=== PATIENT | male | born 1965 | race Caucasian/White ===

== ENCOUNTER 2016-09-18 07:35 | Day surgery (SDC) | payer BC, OTHER ==
[~2016-09-18 07:35] MED LIST: Dextrose 5%-0.45% NaCl 1,000 ML IV SCH; Midazolam 1 MG/ML 2 ML SDV ONE; Sodium Chloride 0.9% 10 ML Syringe FLUSH PRN; fentaNYL 100 MCG/2 ML SDV ONE
[2016-09-18] MEDS ORDERED: fentaNYL 100 MCG/2 ML SDV IV ONE ×4 (08:21→16:23)
[2016-09-18] MEDS ORDERED: Midazolam 1 MG/ML 2 ML SDV IV ONE ×7 (08:21→16:23)
--- NOTE | 2016-09-18 09:44 | OR ---
DATE: 09/18/2016 PROCEDURE: Total colonoscopy. INSTRUMENT USED: CF-H180AL Olympus video colonoscope. Olympus distal detachment device. PREMEDICATIONS: Fentanyl 125 mcg intravenous, Versed 4 mg intravenous. Nasal 2 L O2 cannula. The procedure was done under pulse oximetry, BP recording, and security monitor. INDICATION: Screening colonoscopic examination is done for detection of any polypoid lesions and removal, endoscopic hemostasis therapy if needed. DESCRIPTION OF PROCEDURE: Initial rectal exam was unremarkable. Rigid anoscopy was normal. The colonoscope was passed with ease. Numerous scattered diverticula were noted in the distal left colon along with deformity. The scope was passed with ease up to the ileocecal area, photographs were taken of the normal-appearing cecum, identified by landmarks of appendiceal orifice and double-bulged ileocecal folds. No bleeding was noted from any of the visualized areas at the commencement of the examination. No stricture. No vascular ectasia. No large isolated ulcerations seen. No evidence of diffuse inflammatory bowel disease in the form of friability, contact bleeding, or ulcerations. No polyp or tumor mass identified. Probing the proximal sides of folds and flexures, using adequate distention and clearing up the stool material, withdrawal of the scope was made, cecum to rectum time over 6 minutes. No bleeding was noted from any of the visualized areas at the completion of examination. IMPRESSION: Colonic diverticulosis. The patient tolerated the procedure well. [facility] /[id number]
[2016-09-18 10:41] VITALS: BP 112/70
== END 2016-09-18 10:38 | disposition home or self-care (01) ==
LOC: DL.ENDO 07:35
PROVIDERS: ATTEND Internal Medicine Gastroenterology
DX: Z12.11 Encounter for screening for malignant neoplasm of colon (principal); K57.30 Diverticulosis of large intestine without perforation or abscess without bleeding; I10 Essential (primary) hypertension; E78.5 Hyperlipidemia, unspecified; Z88.1 Allergy status to other antibiotic agents; Z88.8 Allergy status to other drugs, medicaments and biological substances; Z98.52 Vasectomy status; Z79.899 Other long term (current) drug therapy
CPT/HCPCS: 45378; J2250; J3010; J7042